=== PATIENT | female | born 1985 | race Hispanic/Latino ===

== ENCOUNTER 2019-10-18 18:16 | Emergency (ER) | payer SELFPAY ==
--- NOTE | 2019-10-18 21:31 | ER ---
Nurse's Notes [facility] Name: Yessy Burnett Age: 34 yrs Sex: Female : 1985 Arrival Date: 10/18/2019 Time: 18:18 Bed Waiting Private MD: Diagnosis: Presentation: 10/17 18:32 Chief complaint: Patient states: lower abd pain that began since yesterday. Pt reports aa5 increased pain when having a bowel movement. Pt denies vomiting. Coronavirus screen: Proceed with normal triage. Patient denies a cough. Patient denies shortness of breath or difficulty breathing. Patient denies measured and/or subjective temperature greater than 100.4F prior to today's visit. Patient denies travel on a cruise ship or to a country the [facility] currently lists as an affected area. Patient denies contact with known and/or suspected case of COVID-19. Ebola Screen: Patient negative for fever greater than or equal to 101.5 degrees Fahrenheit, and additional compatible Ebola Virus Disease symptoms. Initial Sepsis Screen: Does the patient meet any 2 criteria? No. Patient's initial sepsis screen is negative. Does the patient have a suspected source of infection? No. Patient's initial sepsis screen is negative. Risk Assessment: Do you want to hurt yourself or someone else? Patient reports no desire to harm self or others. Onset of symptoms was October 2019. 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 - Social history:: Smoking status: Patient reports the use of cigarette tobacco products, smokes one-half pack cigarettes per day. Vital Signs: 18:35 BP 110 / 79; Pulse 105; Resp 18 S; Temp 98.7(O); Pulse Ox 95% on R/A; aa5 ED Course: 18:18 Patient arrived in ED. as 18:31 Arm band placed on. aa5 18:34 Triage completed. aa5 19:59 Phong Carter MD is Attending Physician. tw4 Administered Medications: No medications were administered Outcome: 21:29 Patient left the ED. ca1 Signatures: Suad Mancini Audri, RN RN aa5 Phong Carter MD MD tw4 Luli Estrella RN RN ca1
[2019-10-18 22:21] VITALS: BP 110/79; TEMP 98.7; O2SAT 95
== END 2019-10-18 21:29 | disposition left against medical advice (07) ==
LOC: ER 18:16
DX: R10.9 Unspecified abdominal pain (principal); Z53.21 Procedure and treatment not carried out due to patient leaving prior to being seen by health care provider
CPT/HCPCS: 99281